=== PATIENT | male | born 1985 | race Caucasian/White ===

== ENCOUNTER 2019-03-01 21:52 | Emergency (ER) | payer BC, OTHER ==
[2019-03-01 21:57] VITALS: BP 148/85
--- NOTE | 2019-03-01 22:00 | ED Physician Documentation ---
History of Present Illness - Stated complaint Stated Complaint: MALE - Chief complaint Chief Complaint: Wound - History obtained from History obtained from: Patient - Additonal information Additional information: Patient is a previously healthy 33-year-old male presenting with concern for small abscess to gluteal cleft. Patient reports that he often gets abscesses to this area, which resolve on their own. However, he noticed a small pimple-like lesion that has worsened in size and discomfort. Patient notes that this opened and drained on his way to the ED. Patient denies other complaints at this time. No other improving or worsening factors noted. Review of Systems GI: denies: Abdominal Pain Skin: reports: Lesions PD PAST MEDICAL HISTORY - Past Medical History Past Medical History: No - Past Surgical History /DIRECTOR PHYSICAL THERAPY: Other (Hernia repair) - Present Medications Home Medications: Ambulatory Orders Medication Instructions Recorded Confirmed Clindamycin HCl [Clindamycin 150MG 450 mg PO TID 5 Days capsule 03/01/19 CAP] - Allergies Allergies/Adverse Reactions: Allergies Allergy/AdvReac Type Severity Reaction Status Date / Time No Known Drug Allergies Allergy Verified 03/01/19 21:57 PD ED PE NORMAL - Vitals Vital signs reviewed: Yes - General General: Alert and oriented X 3, No acute distress, Well developed/nourished - HEENT HEENT: Atraumatic - Respiratory Respiratory: No respiratory distress - Rectal Rectal: Other (SO in room. Approximately dime sized open abscess to left gluteal cleft.) - Derm Derm: Normal color, Warm and dry, No rash - Extremities Extremities: No deformity - Neuro Neuro: Alert and oriented X 3, No motor deficit, No sensory deficit - Psych Psych: Normal mood, Normal affect Results - Vitals Vitals: Vital Signs - 24 hr 03/01/19 21:55 Temperature 37.1 C Heart Rate 104 H Respiratory 17 Rate Blood Pressure 148/85 H O2 Saturation 99 Oxygen O2 Source Room air PD MEDICAL DECISION MAKING - ED course Complexity details: considered differential, d/w patient, d/w family ED course: Patient presenting with a small gluteal abscess that has already opened up and drained. No need for I&D at this time. Discussed use of antibiotics, hygiene, return precautions, appropriate follow-up. Otherwise, do not feel patient is at high risk for other perineal, abdominal, or systemic illness. Departure - Departure Disposition: 01 Home, Self Care Clinical Impression: Abscess Condition: Good Instructions: ED Yamel Anal Abscess Abx Only Follow-Up: Melissa Roberson PA-C [Primary Care Provider] - Within 3 Days Prescriptions: Clindamycin HCl [Clindamycin 150MG CAP] 450 mg PO TID 5 Days capsule Comments: Please take antibiotics as prescribed. Please keep area clean and dry. Use running water and soap only. Do not soak in a bathtub, pool, hot tub until fully recovered. Follow-up with primary care physician in next 2 to 3 days and return to ED sooner if experience worsening symptoms or other concerns.
== END 2019-03-01 22:12 | disposition home or self-care (01) ==
LOC: ED 21:52
DX: L02.31 Cutaneous abscess of buttock (principal)
CPT/HCPCS: 99283